=== PATIENT | female | born 1940 | race African-American/Black ===

== ENCOUNTER 2018-08-03 10:32 | Emergency (ER) | payer BC, MEDICARE ==
[~2018-08-03] VITALS: Ht 167.6 cm; Wt 62.0 kg
[~2018-08-03 10:32] MED LIST: CARV6.2548 PO; LOSA50TA20 PO; OMEP20TA2 PO
[2018-08-03 11:55] LABS: CHLORIDE 107 mEq/L (98-107)
[2018-08-03 12:00] LABS: MEAN CORPUSCULAR HEMOGLOBIN 22.1 pg (28.0-32.0); MEAN CORPUSCULAR VOLUME 67.3 fL (81.0-99.0); MEAN PLATELET VOLUME 6.9 fl (7.4-10.4); PLATELET 151 x1000/uL (130-400); RED BLOOD CELL COUNT 3.04 mill/uL (4.2-5.4); RED CELL DISTRIBUTION WIDTH 19.7 % (11.6-14.6)
[2018-08-03 12:09] LABS: HEMATOCRIT. 20.5 % (36.0-48.0); HEMOGLOBIN. 6.7 g/dL (12.0-16.0)
[2018-08-03 13:39] LABS: PLATELET ESTIMATE NORMAL
[2018-08-03 20:35] VITALS: BP 154/72
== END 2018-08-03 20:51 | disposition short-term general hospital (02) ==
LOC: ER 10:32 → CANBEDREQ 21:15
DX: D64.9 Anemia, unspecified (principal); K92.2 Gastrointestinal hemorrhage, unspecified; S20.211A Contusion of right front wall of thorax, initial encounter; Z90.710 Acquired absence of both cervix and uterus; Z90.49 Acquired absence of other specified parts of digestive tract; W19.XXXA Unspecified fall, initial encounter; Y93.89 Activity, other specified; Y92.89 Other specified places as the place of occurrence of the external cause
CPT/HCPCS: 36415; 36430; 71101; 80048; 86850; 86900; 86920; 99285; P9016

== ENCOUNTER 2019-10-03 17:49 | Inpatient (IN) | payer BC, MEDICARE ==
[~2019-10-03] VITALS: Ht 167.6 cm; Wt 79.4 kg
[~2019-10-03 17:49] MED LIST changes: +ALBU2.5V13 NEB; -LOSA50TA20 PO; +LOSA50TA41 MT; -OMEP20TA2 PO
[2019-10-03] MEDS ORDERED: SODIUM CHLORIDE 0.9% 500 ML IV ONE (19:00)
[2019-10-03 19:02] LABS: BASOPHILS % 0.9 % (0.0-2.0); EOSINOPHILS % 1.1 % (0.0-5.0); LYMPHOCYTES % 31.7 % (20.0-50.0); MEAN CORPUSCULAR HEMOGLOBIN 26.2 pg (28.0-32.0); MEAN CORPUSCULAR VOLUME 77.2 fL (81.0-99.0); MEAN PLATELET VOLUME 7.5 fl (7.4-10.4); MONOCYTES % 7.8 % (2.0-8.0); NEUTROPHILS % 58.5 % (40.0-76.0); PLATELET 166 x1000/uL (130-400); RED BLOOD CELL COUNT 2.58 mill/uL (4.2-5.4); RED CELL DISTRIBUTION WIDTH 19.7 % (11.6-14.6)
[2019-10-03 19:04] LABS: CHLORIDE 109 mEq/L (98-107)
[2019-10-03 19:08] LABS: INR 1.1; PROTHROMBIN TIME 11.8 sec (9.6-11.0)
[2019-10-03 19:10] LABS: HEMATOCRIT. 19.9 % (36.0-48.0); HEMOGLOBIN. 6.8 g/dL (12.0-16.0)
[2019-10-03] MEDS ORDERED: PANTOPRAZOLE 80 MG in SODIUM CHLORIDE 0.9% 100 ML IV SCH (20:45)
[2019-10-03] MEDS ORDERED: PANTOPRAZOLE SODIUM 40 MG/VIAL IV NR (21:00)
[2019-10-03 21:52] LABS: CLARITY URINE CLEAR (CLEAR); COLOR URINE YELLOW (YELLOW); KETONES URINE NEGATIVE (NEGATIVE); LEUKOCYTE ESTERASE URINE TRACE (NEGATIVE); NITRITE URINE NEGATIVE (NEGATIVE); OCCULT BLOOD URINE 1+ (NEGATIVE); PROTEIN URINE NEGATIVE (NEGATIVE); SPECIFIC GRAVITY URINE 1.024 (1.005-1.030)
[2019-10-03] MEDS ORDERED: GUAIFENESIN 200MG/10ML SUGAR FREE UDC PO PRN (22:15)
[2019-10-03] MEDS ORDERED: DOCUSATE SODIUM 100MG CAPSULE PO PRN (22:15)
[2019-10-03] MEDS ORDERED: MAGNESIUM/ALUMINUM HYDROXIDE/SIMETHICONE 30ML UDC PO PRN (22:15)
[2019-10-03] MEDS ORDERED: HYDRALAZINE 20MG/ML VIAL IV PRN (22:15)
[2019-10-03] MEDS ORDERED: ONDANSETRON HCL 4MG/2ML INJ IV PRN (22:15)
[2019-10-03] MEDS ORDERED: LORAZEPAM 2MG/ML CPJ IV PRN (22:15)
[2019-10-03] MEDS ORDERED: IPRATROPIUM/ALBUTEROL 0.5-3(2.5)MG/3ML NEB HHN PRN (22:15)
[2019-10-03] MEDS ORDERED: ACETAMINOPHEN 325MG TABLET PO PRN (22:15)
[2019-10-03] MEDS ORDERED: DIPHENHYDRAMINE 50MG/ML VIAL IV PRN (22:15)
[2019-10-03] MEDS ORDERED: MORPHINE SULFATE 2 MG/ML CPJ (NOT FOR IM USE) IV PRN (22:37)
[2019-10-03] MEDS ORDERED: HYDROCODONE/ACETAMINOPHEN 10/325MG TABLET PO PRN (22:37)
[2019-10-03 23:55] VITALS: BP 160/50
[2019-10-04] VITALS (9 sets, daily range): BP systolic 123–178; BP diastolic 50–73
[2019-10-04] MEDS ORDERED: PANTOPRAZOLE 80 MG in SODIUM CHLORIDE 0.9% 100 ML IV SCH ×2
[2019-10-04] MEDS ORDERED: LOSA100T32 PO (03:02)
[2019-10-04] MEDS ORDERED: CARV25TA47 PO (03:02)
[2019-10-04] MEDS: DEXT 5%/0.45% NACL 1000ML 1,000 ML IV SCH (03:41)
[2019-10-04] MEDS: SODIUM CHLORIDE 0.9% INJ 3ML FLUSH IVF SCH ×3 (06:00→20:47)
[2019-10-04 07:26] LABS: BASOPHILS % 0.9 % (0.0-2.0); EOSINOPHILS % 0.9 % (0.0-5.0); LYMPHOCYTES % 30.5 % (20.0-50.0); MEAN CORPUSCULAR HEMOGLOBIN 25.7 pg (28.0-32.0); MEAN CORPUSCULAR VOLUME 76.4 fL (81.0-99.0); MEAN PLATELET VOLUME 8.2 fl (7.4-10.4); MONOCYTES % 6.8 % (2.0-8.0); NEUTROPHILS % 60.9 % (40.0-76.0); PLATELET 134 x1000/uL (130-400); RED BLOOD CELL COUNT 2.71 mill/uL (4.2-5.4); RED CELL DISTRIBUTION WIDTH 18.6 % (11.6-14.6)
[2019-10-04 07:35] LABS: HEMATOCRIT. 20.7 % (36.0-48.0)
[2019-10-04 07:49] LABS: CHLORIDE 111 mEq/L (98-107)
[2019-10-04] MEDS ORDERED: POTASSIUM CHLORIDE 20MEQ TABLET SR PO SCH (08:30)
[2019-10-04 13:16] LABS: TOTAL IRON BINDING CAPACITY 303 ug/dL (250-450)
[2019-10-04 20:03] LABS: HEMATOCRIT 26.7 % (36.0-48.0); HEMOGLOBIN 8.8 g/dL (12.0-16.0)
[2019-10-04] MEDS: DOCUSATE SODIUM 250MG CAPSULE PO SCH (21:17)
[2019-10-05] VITALS: BP 124/79
[2019-10-05 01:10] LABS: HEMATOCRIT 25.7 % (36.0-48.0); HEMOGLOBIN 8.9 g/dL (12.0-16.0)
[2019-10-05] MEDS: DEXT 5%/0.45% NACL 1000ML 1,000 ML IV SCH ×2 (03:58→21:53)
[2019-10-05 04:00] VITALS: BP 131/60
[2019-10-05] MEDS: SODIUM CHLORIDE 0.9% INJ 3ML FLUSH IVF SCH ×3 (04:35→21:52)
[2019-10-05 08:00] VITALS: BP 119/71
[2019-10-05] MEDS: PANTOPRAZOLE SODIUM 40 MG/VIAL IV SCH (08:27)
[2019-10-05] MEDS: DOCUSATE SODIUM 250MG CAPSULE PO SCH (08:27)
[2019-10-05 09:52] LABS: INR 1.1; PROTHROMBIN TIME 11.9 sec (9.6-11.0)
[2019-10-05 09:56] LABS: CHLORIDE 107 mEq/L (98-107)
[2019-10-05 12:00] VITALS: BP 161/73
[2019-10-05] MEDS ORDERED: SIMETHICONE 40 MG/0.6 ML 30ML ONE (16:37)
[2019-10-05] MEDS ORDERED: FENTANYL CITRATE/PF 50MCG/ML 2ML VIAL IV PRN (16:40)
[2019-10-05] MEDS ORDERED: MIDAZOLAM HCL 5 MG/5 ML VIAL IV PRN (16:43)
[2019-10-05] MEDS ORDERED: FENTANYL CITRATE/PF 50MCG/ML 2ML VIAL ONE (16:46)
[2019-10-05] MEDS ORDERED: MIDAZOLAM HCL 5 MG/5 ML VIAL ONE (16:46)
[2019-10-05 17:58] VITALS: BP 178/71
[2019-10-05] MEDS: CLONIDINE 0.1MG TABLET PO PRN (18:24)
[2019-10-06] VITALS: BP 134/55
[2019-10-06 04:00] VITALS: BP 144/64
[2019-10-06] MEDS: SODIUM CHLORIDE 0.9% INJ 3ML FLUSH IVF SCH ×3 (06:20→21:59)
[2019-10-06 08:00] VITALS: BP 127/67
[2019-10-06] MEDS: DOCUSATE SODIUM 250MG CAPSULE PO SCH (08:16)
[2019-10-06] MEDS: PANTOPRAZOLE SODIUM 40 MG/VIAL IV SCH (08:16)
[2019-10-06 11:28] LABS: HEMATOCRIT 29.6 % (36.0-48.0); MEAN CORPUSCULAR HEMOGLOBIN 26.5 pg (28.0-32.0); PLATELET 179 x1000/uL (130-400); RED BLOOD CELL COUNT 3.79 mill/uL (4.2-5.4); RED CELL DISTRIBUTION WIDTH 17.8 % (11.6-14.6)
[2019-10-06 12:00] VITALS: BP 143/71
[2019-10-06 16:00] VITALS: BP 170/77
[2019-10-06] MEDS: CLONIDINE 0.1MG TABLET PO PRN (18:04)
[2019-10-06 20:00] VITALS: BP 116/62
[2019-10-06] MEDS: DEXT 5%/0.45% NACL 1000ML 1,000 ML IV SCH (22:45)
[2019-10-07] VITALS: BP 145/55
[2019-10-07 04:00] VITALS: BP 156/59
[2019-10-07] MEDS: SODIUM CHLORIDE 0.9% INJ 3ML FLUSH IVF SCH (06:00)
[2019-10-07 07:59] VITALS: BP 163/77
[2019-10-07] MEDS: PANTOPRAZOLE SODIUM 40 MG/VIAL IV SCH (08:24)
[2019-10-07] MEDS: DOCUSATE SODIUM 250MG CAPSULE PO SCH (08:30)
[2019-10-07] MEDS: CLONIDINE 0.1MG TABLET PO PRN (08:30)
[2019-10-07 10:17] VITALS: BP 128/58
== END 2019-10-07 11:11 | disposition home or self-care (01) | DRG 378 ==
LOC: ER 17:49 → 5WST 21:37 → EDBEDREQ 21:45 → EDBEDREQTM 21:45 → ENRESERV 22:53
PROVIDERS: ADMIT Internal Medicine; ATTEND Internal Medicine
PROC: 30233N1 Transfusion of Nonautologous Red Blood Cells into Peripheral Vein, Percutaneous Approach (ICD-10-PCS; principal; 2019-10-03)
PROC: 0DB68ZX Excision of Stomach, Via Natural or Artificial Opening Endoscopic, Diagnostic (ICD-10-PCS; 2019-10-05)
DX: K29.71 Gastritis, unspecified, with bleeding (principal); E44.1 Mild protein-calorie malnutrition; D64.9 Anemia, unspecified; B19.20 Unspecified viral hepatitis C without hepatic coma; K59.00 Constipation, unspecified; I10 Essential (primary) hypertension; K80.20 Calculus of gallbladder without cholecystitis without obstruction; K21.9 Gastro-esophageal reflux disease without esophagitis; K64.8 Other hemorrhoids; Z79.899 Other long term (current) drug therapy; Z90.710 Acquired absence of both cervix and uterus; Z90.49 Acquired absence of other specified parts of digestive tract; Z68.28 Body mass index [BMI] 28.0-28.9, adult
CPT/HCPCS: 36415; 80048; 80053; 81003; 82270; 82728; 83540; 83550; 85014; 85018; 85025; 85027; 86850; 86900; 86920; 88305; 88313; 93005; 93970; 99291; C9113; J2250; J3010; J7030; J7050; P9016

== ENCOUNTER 2021-01-18 11:52 | Inpatient (IN) | payer MEDICARE ==
[~2021-01-18] VITALS: Ht 167.6 cm; Wt 67.6 kg
[~2021-01-18 11:52] MED LIST changes: -ALBU2.5V13 NEB; +CARV25TA47 PO; -CARV6.2548 PO; +LOSA100T32 PO; -LOSA50TA41 MT
[2021-01-18 14:02] LABS: BASOPHILS % 1.4 % (0.0-2.0); EOSINOPHILS % 0.2 % (0.0-5.0); HEMOGLOBIN. 7.9 g/dL (12.0-16.0); LYMPHOCYTES % 19.9 % (20.0-50.0); MEAN CORPUSCULAR HEMOGLOBIN 27.1 pg (28.0-32.0); MEAN CORPUSCULAR VOLUME 78.9 fL (81.0-99.0); MEAN PLATELET VOLUME 8.7 fl (7.4-10.4); MONOCYTES % 5.3 % (2.0-8.0); NEUTROPHILS % 73.2 % (40.0-76.0); PLATELET 156 x1000/uL (130-400); RED BLOOD CELL COUNT 2.92 mill/uL (4.2-5.4); RED CELL DISTRIBUTION WIDTH 15.7 % (11.6-14.6)
[2021-01-18 14:09] LABS: CHLORIDE 111 mEq/L (98-107)
[2021-01-18] MEDS ORDERED: DOCUSATE SODIUM 100MG CAPSULE PO PRN (22:45)
[2021-01-18] MEDS ORDERED: ACETAMINOPHEN 325MG TABLET PO PRN ×2 (22:45)
[2021-01-18] MEDS ORDERED: IPRATROPIUM/ALBUTEROL 0.5-3(2.5)MG/3ML NEB NEB PRN (22:45)
[2021-01-18] MEDS ORDERED: ONDANSETRON HCL 4MG/2ML INJ IV PRN (22:45)
[2021-01-18] MEDS ORDERED: GUAIFENESIN 200MG/10ML SUGAR FREE UDC PO PRN (22:45)
[2021-01-18] MEDS ORDERED: TRAMADOL 50MG TABLET PO PRN (22:45)
[2021-01-18] MEDS ORDERED: ZOLPIDEM TARTRATE 5MG TABLET PO PRN (22:45)
[2021-01-18] MEDS ORDERED: NITROGLYCERIN 0.4MG TABLET SL SL PRN (22:45)
[2021-01-18] MEDS ORDERED: MAGNESIUM/ALUMINUM HYDROXIDE/SIMETHICONE 30ML UDC PO PRN (22:45)
[2021-01-18 23:26] LABS: TOTAL IRON BINDING CAPACITY 329 ug/dL (250-450)
[2021-01-19] MEDS: PANTOPRAZOLE SODIUM 40 MG/VIAL IV SCH ×3 (01:34→21:37)
[2021-01-19] MEDS: DEXT 5%/LACTATED RINGERS 1,000 ML IV SCH ×2 (01:34→12:40)
[2021-01-19 05:33] LABS: CHLORIDE 113 mEq/L (98-107)
[2021-01-19 05:43] LABS: BASOPHILS % 0.8 % (0.0-2.0); EOSINOPHILS % 0.7 % (0.0-5.0); LYMPHOCYTES % 29.1 % (20.0-50.0); MEAN CORPUSCULAR HEMOGLOBIN 26.8 pg (28.0-32.0); MEAN CORPUSCULAR VOLUME 80.2 fL (81.0-99.0); MEAN PLATELET VOLUME 8.5 fl (7.4-10.4); MONOCYTES % 8.2 % (2.0-8.0); NEUTROPHILS % 61.2 % (40.0-76.0); PLATELET 107 x1000/uL (130-400); RED BLOOD CELL COUNT 2.47 mill/uL (4.2-5.4); RED CELL DISTRIBUTION WIDTH 15.9 % (11.6-14.6)
[2021-01-19 05:44] LABS: PHOSPHORUS 3.1 mg/dL (2.5-4.9)
[2021-01-19 05:48] LABS: CREATINE KINASE 56 IU/L (26-192)
[2021-01-19 05:50] LABS: CREATINE KINASE MB FRACTION 1.1 ng/mL (0.5-3.6)
[2021-01-19 06:04] LABS: HEMOGLOBIN. 6.6 g/dL (12.0-16.0)
[2021-01-19 06:05] LABS: HEMATOCRIT. 19.8 % (36.0-48.0)
[2021-01-19] MEDS ORDERED: NALOXONE HCL 0.4MG/ML VIAL IV PRN (12:45)
[2021-01-19] MEDS ORDERED: GLUC-113 PO (15:43)
[2021-01-19] MEDS ORDERED: NIFE-33 PO (15:43)
[2021-01-19] MEDS ORDERED: LOSA1TAB37 PO (15:43)
[2021-01-19] MEDS ORDERED: FERR-71 PO (15:43)
[2021-01-19 15:53] VITALS: BP 132/49
[2021-01-19 15:59] VITALS: BP 132/49
[2021-01-19] MEDS ORDERED: *PATIENT'S OWN MEDICATION STORAGE XX SCH (16:15)
[2021-01-19] MEDS ORDERED: PNEUMOCOCCAL 23-VAL P-SAC VAC 0.5 ML IM ONE (17:00)
[2021-01-19] MEDS ORDERED: INFLUENZA VACCINE 05/PF 0.5 ML SYRINGE IM ONE (17:00)
[2021-01-19 18:46] VITALS: BP 115/45
[2021-01-19 19:00] VITALS: BP 118/44
[2021-01-19 20:00] VITALS: BP 127/52
[2021-01-19 21:00] VITALS: BP 153/65
[2021-01-19 23:36] LABS: CREATINE KINASE 61 IU/L (26-192)
[2021-01-19 23:40] LABS: CREATINE KINASE MB FRACTION 1.3 ng/mL (0.5-3.6)
[2021-01-20] VITALS (9 sets, daily range): BP systolic 112–167; BP diastolic 48–77
[2021-01-20] MEDS: DEXT 5%/LACTATED RINGERS 1,000 ML IV SCH (01:57)
[2021-01-20] MEDS ORDERED: POTASSIUM CHLORIDE 20MEQ TABLET SR PO NR (03:00)
[2021-01-20] MEDS: DEXT 5%/0.45% NACL 1000ML 1,000 ML IV SCH ×2 (03:07→16:50)
[2021-01-20 03:28] LABS: BASOPHILS % 0.4 % (0.0-2.0); EOSINOPHILS % 1.4 % (0.0-5.0); HEMATOCRIT. 21.7 % (36.0-48.0); HEMOGLOBIN. 7.7 g/dL (12.0-16.0); LYMPHOCYTES % 29.8 % (20.0-50.0); MEAN CORPUSCULAR HEMOGLOBIN 28.6 pg (28.0-32.0); MEAN CORPUSCULAR VOLUME 80.9 fL (81.0-99.0); MEAN PLATELET VOLUME 7.3 fl (7.4-10.4); MONOCYTES % 10.1 % (2.0-8.0); NEUTROPHILS % 58.3 % (40.0-76.0); PLATELET 105 x1000/uL (130-400); RED BLOOD CELL COUNT 2.68 mill/uL (4.2-5.4)
[2021-01-20 03:35] LABS: CHLORIDE 110 mEq/L (98-107)
[2021-01-20 03:46] LABS: INR 1.1; PROTHROMBIN TIME 12.2 sec (9.6-11.0)
[2021-01-20] MEDS: PANTOPRAZOLE SODIUM 40 MG/VIAL IV SCH ×2 (09:00→21:01)
[2021-01-20] MEDS: CLONIDINE 0.1MG TABLET PO PRN ×2 (11:46→21:01)
[2021-01-20] MEDS ORDERED: FENTANYL CITRATE/PF 50MCG/ML 2ML VIAL ONE (12:44)
[2021-01-20] MEDS ORDERED: MIDAZOLAM HCL 5 MG/5 ML VIAL ONE (12:44)
[2021-01-20] MEDS ORDERED: SIMETHICONE 40 MG/0.6 ML 30ML ONE (12:45)
[2021-01-20] MEDS ORDERED: MIDAZOLAM HCL 5 MG/5 ML VIAL IV PRN (13:01)
[2021-01-20] MEDS ORDERED: FENTANYL CITRATE/PF 50MCG/ML 2ML VIAL IV PRN (13:02)
[2021-01-20] MEDS ORDERED: DIAZEPAM 5 MG/ML 2ML CPJ IV PRN (13:05)
[2021-01-20] MEDS ORDERED: DIAZEPAM 5 MG/ML 2ML CPJ ONE (13:14)
[2021-01-20 22:04] LABS: HEMATOCRIT 26.8 % (36.0-48.0); HEMOGLOBIN 9.3 g/dL (12.0-16.0)
[2021-01-21] VITALS: BP 136/55
[2021-01-21 04:00] VITALS: BP 142/65
[2021-01-21] MEDS: DEXT 5%/0.45% NACL 1000ML 1,000 ML IV SCH ×2 (05:13→20:00)
[2021-01-21 06:37] LABS: BASOPHILS % 0.6 % (0.0-2.0); EOSINOPHILS % 1.5 % (0.0-5.0); HEMATOCRIT. 24.7 % (36.0-48.0); HEMOGLOBIN. 8.7 g/dL (12.0-16.0); LYMPHOCYTES % 22.3 % (20.0-50.0); MEAN CORPUSCULAR HEMOGLOBIN 28.6 pg (28.0-32.0); MEAN CORPUSCULAR VOLUME 81.6 fL (81.0-99.0); MEAN PLATELET VOLUME 8.7 fl (7.4-10.4); MONOCYTES % 7.6 % (2.0-8.0); PLATELET 105 x1000/uL (130-400); RED BLOOD CELL COUNT 3.03 mill/uL (4.2-5.4); RED CELL DISTRIBUTION WIDTH 16.1 % (11.6-14.6)
[2021-01-21 07:23] LABS: CHLORIDE 109 mEq/L (98-107)
[2021-01-21 08:00] VITALS: BP 154/59
[2021-01-21] MEDS ORDERED: BARIUM SULFATE(VOLUMEN) 450 ML ORAL.SUSP ONE (08:57)
[2021-01-21] MEDS: PANTOPRAZOLE SODIUM 40 MG/VIAL IV SCH ×2 (11:36→20:00)
[2021-01-21 12:00] VITALS: BP 125/53
[2021-01-21 16:00] VITALS: BP 165/66
[2021-01-21] MEDS: CLONIDINE 0.1MG TABLET PO PRN (18:09)
[2021-01-21 20:00] VITALS: BP 128/48
[2021-01-22] VITALS (7 sets, daily range): BP systolic 122–170; BP diastolic 62–75
[2021-01-22 07:11] LABS: CHLORIDE 108 mEq/L (98-107)
[2021-01-22 07:20] LABS: BASOPHILS % 0.6 % (0.0-2.0); EOSINOPHILS % 1.5 % (0.0-5.0); HEMATOCRIT. 24.6 % (36.0-48.0); HEMOGLOBIN. 8.5 g/dL (12.0-16.0); LYMPHOCYTES % 16.6 % (20.0-50.0); MEAN CORPUSCULAR HEMOGLOBIN 28.2 pg (28.0-32.0); MEAN CORPUSCULAR VOLUME 81.5 fL (81.0-99.0); MEAN PLATELET VOLUME 8.2 fl (7.4-10.4); MONOCYTES % 7.5 % (2.0-8.0); NEUTROPHILS % 73.8 % (40.0-76.0); PLATELET 112 x1000/uL (130-400); RED BLOOD CELL COUNT 3.02 mill/uL (4.2-5.4); RED CELL DISTRIBUTION WIDTH 16.4 % (11.6-14.6)
[2021-01-22] MEDS: DEXT 5%/0.45% NACL 1000ML 1,000 ML IV SCH ×2 (09:30→23:48)
[2021-01-22] MEDS: PANTOPRAZOLE SODIUM 40 MG/VIAL IV SCH ×2 (12:28→20:44)
[2021-01-22] MEDS: IRON SUCROSE COMPLEX 100 MG/5 ML ML IV SCH (13:27)
[2021-01-23] VITALS: BP 151/65
[2021-01-23 04:00] VITALS: BP 145/71
[2021-01-23 06:53] LABS: BASOPHILS % 0.7 % (0.0-2.0); EOSINOPHILS % 1.7 % (0.0-5.0); HEMOGLOBIN. 8.6 g/dL (12.0-16.0); MEAN CORPUSCULAR HEMOGLOBIN 28.1 pg (28.0-32.0); MEAN CORPUSCULAR VOLUME 82.1 fL (81.0-99.0); MEAN PLATELET VOLUME 8.7 fl (7.4-10.4); MONOCYTES % 9.7 % (2.0-8.0); NEUTROPHILS % 64.9 % (40.0-76.0); PLATELET 121 x1000/uL (130-400); RED BLOOD CELL COUNT 3.04 mill/uL (4.2-5.4); RED CELL DISTRIBUTION WIDTH 16.5 % (11.6-14.6)
[2021-01-23 07:05] LABS: CHLORIDE 106 mEq/L (98-107)
[2021-01-23 08:00] VITALS: BP 152/65
[2021-01-23] MEDS: PANTOPRAZOLE SODIUM 40 MG/VIAL IV SCH (08:28)
[2021-01-23] MEDS: DEXT 5%/0.45% NACL 1000ML 1,000 ML IV SCH (11:27)
[2021-01-23 11:50] VITALS: BP 162/71
[2021-01-23 12:00] VITALS: BP 162/71
[2021-01-23] MEDS: CLONIDINE 0.1MG TABLET PO PRN (12:22)
[2021-01-23] MEDS ORDERED: POLYETHYLENE GLYCOL 3350 (17GM) 1 DOSE PACK PO SCH (13:00)
[2021-01-23] MEDS ORDERED: LACTULOSE 20G/30ML UDC PO NR (13:00)
[2021-01-23] MEDS: IRON SUCROSE COMPLEX 100 MG/5 ML ML IV SCH (13:09)
[2021-01-23] MEDS ORDERED: DOCUSATE SODIUM 100MG CAPSULE PO SCH (17:00)
== END 2021-01-23 14:50 | disposition home or self-care (01) | DRG 378 ==
LOC: ER 11:52 → SUPCPDRO 22:39 → MICUSO 01-19 00:59 → 8WST 01-19 07:42 → MICUSO 01-19 07:42 → 7EST 01-19 15:22
PROVIDERS: ADMIT Internal Medicine; ATTEND Internal Medicine
PROC: 30233N1 Transfusion of Nonautologous Red Blood Cells into Peripheral Vein, Percutaneous Approach (ICD-10-PCS; 2021-01-19)
PROC: 0DD78ZX Extraction of Stomach, Pylorus, Via Natural or Artificial Opening Endoscopic, Diagnostic (ICD-10-PCS; principal; 2021-01-20)
DX: K29.71 Gastritis, unspecified, with bleeding (principal); D62 Acute posthemorrhagic anemia; E44.0 Moderate protein-calorie malnutrition; D50.9 Iron deficiency anemia, unspecified; E87.6 Hypokalemia; I10 Essential (primary) hypertension; K21.9 Gastro-esophageal reflux disease without esophagitis; K76.0 Fatty (change of) liver, not elsewhere classified; Z20.822 Contact with and (suspected) exposure to COVID-19; K44.9 Diaphragmatic hernia without obstruction or gangrene; Z60.2 Problems related to living alone; K64.1 Second degree hemorrhoids; K64.4 Residual hemorrhoidal skin tags; K57.90 Diverticulosis of intestine, part unspecified, without perforation or abscess without bleeding; Z90.710 Acquired absence of both cervix and uterus; Z90.49 Acquired absence of other specified parts of digestive tract; Z68.24 Body mass index [BMI] 24.0-24.9, adult; Z79.899 Other long term (current) drug therapy; Z88.0 Allergy status to penicillin
CPT/HCPCS: 36415; 71045; 74177; 76700; 80048; 80053; 82550; 82553; 82607; 82746; 83540; 83550; 83735; 83880; 84100; 84484; 85014; 85018; 85025; 85044; 86850; 86900; 86920; 87426; 88305; 90686; 90732; 93005; 93970; 99152; 99285; C9113; J2250; J3010; P9016; G0500